=== PATIENT | female | born 1950 | race Caucasian/White ===

== ENCOUNTER 2018-03-20 00:45 | Inpatient (IN) | payer OTHER, MEDICARE ==
[2018-03-20] MEDS: SOD CHLORIDE 0.9% 500 ML IV (01:55)
[2018-03-20] MEDS: morphine 4 MG/ML VIAL IV (01:56)
[2018-03-20] MEDS: ONDANSETRON 4 MG INJ IV (01:56)
[2018-03-20 02:23] LABS: ADD MAN DIFF? NO
[2018-03-20 02:27] LABS: BASOPHILS % 0.2 % (0.0-2.0); EOSINOPHILS % 0.2 % (0.0-7.0); HEMATOCRIT 41.7 % (37.0-47.0); HEMOGLOBIN 14.3 g/dl (12.0-16.0); MEAN CORPUSCULAR HEMOGLOBIN 31.3 pg (29.0-33.0); MEAN CORPUSCULAR HGB CONC 34.3 g/dl (32.0-37.0); MEAN CORPUSCULAR VOLUME 91.2 fl (82.0-101.0); MONOCYTE # 0.8 10^3/ul (0.3-0.9); MONOCYTES % 5.7 % (0.0-11.0); NEUTROPHIL # 11.1 10^3/ul (1.6-7.5); NEUTROPHILS % 79.6 % (39.0-77.0); PLATELET COUNT 279 10^3/UL (140-415); RED BLOOD COUNT 4.57 10^6/ul (4.20-5.40); RED CELL DISTRIBUTION WIDTH 11.7 % (11.5-14.5)
[2018-03-20 02:57] LABS: ALANINE AMINOTRANSFERASE 375 IU/L (13-69); ALBUMIN 4.4 g/dl (3.3-4.9); ALBUMIN/GLOBULIN RATIO 1.04; ALKALINE PHOSPHATASE 155 IU/L (42-121); ANION GAP 16 (8-16); ASPARTATE AMINO TRANSFERASE 482 IU/L (15-46); BILIRUBIN,INDIRECT 0.4 mg/dl (0-1.1); BILIRUBIN,TOTAL 0.5 mg/dl (0.2-1.3); BLOOD UREA NITROGEN 17 mg/dl (7-20); CARBON DIOXIDE 30 mmol/L (21-31); CHLORIDE 102 mmol/L (97-110); CREATININE 0.58 mg/dl (0.44-1.00); GLUCOSE 289 mg/dl (70-220); LIPASE 93 U/L (23-300); POTASSIUM 4.3 mmol/L (3.5-5.1); SODIUM 144 mmol/L (135-144); TOTAL PROTEIN 8.6 g/dl (6.1-8.1)
[2018-03-20 04:29] LABS: URINE PH (Dip) POC 6.5 (5.0-8.5)
[2018-03-20 04:29] LABS: URINE BLOOD (Dip) POC 2+ (NEGATIVE); URINE KETONES (Dip) POC Negative (NEGATIVE); URINE LEUKOCYTE EST (Dip) POC Negative (NEGATIVE); URINE NITRITE (Dip) POC Negative (NEGATIVE); URINE TOTAL PROTEIN POC Trace (NEGATIVE)
[2018-03-20] MEDS: PIPER-TAZO 3.375 GM IV (PMX) 100 ML IVPB ×3 (04:34→19:06)
[2018-03-20] MEDS ORDERED: NACL 0.9% 3 ML SYG IV (05:30)
[2018-03-20] MEDS ORDERED: GLUCOSE GEL 15 GRAM TUBE BUCCAL (05:30)
[2018-03-20] MEDS ORDERED: GLUCOSE GEL 15 GRAM TUBE PO ×2 (05:30)
[2018-03-20] MEDS ORDERED: ALBUTEROL/IPRATROPIUM (NEB) 3 ML AMP HHN (05:30)
[2018-03-20] MEDS ORDERED: DEXTROSE 50% 50 ML SYRINGE IV ×2 (05:30)
[2018-03-20] MEDS ORDERED: GLUCAGON 1 MG INJ IM (05:30)
[2018-03-20] MEDS: morphine 2 MG INJ IV (06:10)
[2018-03-20] MEDS: DEXTROSE 5%-0.45% NACL 1,000 ML IV (06:10)
[2018-03-20] MEDS: INSULIN ASPART [NOVOLOG] 3 ML PEN SC ×4 (09:28→21:00)
[2018-03-20] MEDS: FAMOTIDINE 20 MG INJ IV ×2 (09:32→20:56)
[2018-03-20] MEDS ORDERED: IBUPROFEN 600 MG TAB PO (17:00)
[2018-03-20] MEDS ORDERED: ACETAMINOPHEN 325 MG TAB PO (17:00)
[2018-03-20] MEDS ORDERED: ONDANSETRON 4 MG INJ IV ×2 (17:00→17:30)
[2018-03-20] MEDS ORDERED: HYDROCODONE/APAP (10/325) TAB PO (17:00)
[2018-03-20] MEDS ORDERED: DIPHENHYDRAMINE 50 MG INJ IV (17:30)
[2018-03-20] MEDS ORDERED: FENTAnyl 50 MCG/ML VIAL IV ×2 (17:30)
[2018-03-20] MEDS ORDERED: METOCLOPRAMIDE 10 MG INJ IV (17:30)
[2018-03-20] MEDS ORDERED: HYDROmorphONE (0.2 MG/ML) 10ML SYG IV ×3 (17:30)
[2018-03-20] MEDS ORDERED: MEPERIDINE 25 MG INJ IV (17:30)
[2018-03-20] MEDS ORDERED: POTASSIUM CHLORIDE 10 MEQ in SOD CHLORIDE 0.45% 1,000 ML IV (17:30)
[2018-03-20 17:46] LABS: HEMOGLOBIN A1C 7.4 % (0-5.9)
[2018-03-20] MEDS: D5W-0.45 NACL + KCL 20 MEQ 1,000 ML IV (19:06)
[2018-03-20] MEDS: INSULIN GLARGINE [LANtus] 3 ML PEN SC (20:59)
[2018-03-21] MEDS: PIPER-TAZO 3.375 GM IV (PMX) 100 ML IVPB ×5 (00:06→23:59)
[2018-03-21] MEDS: ONDANSETRON 4 MG INJ IV ×2 (00:10→14:43)
[2018-03-21] MEDS ORDERED: ACCU-CHEK XX (02:00)
[2018-03-21] MEDS: INSULIN ASPART [NOVOLOG] 3 ML PEN SC ×6 (02:52→21:49)
[2018-03-21] MEDS: D5W-0.45 NACL + KCL 20 MEQ 1,000 ML IV ×3 (02:57→21:43)
[2018-03-21] MEDS: INDOMETHACIN 50 MG SUPP PR (03:06)
[2018-03-21] MEDS: morphine 2 MG INJ IV (05:50)
[2018-03-21 06:07] LABS: ADD MAN DIFF? NO
[2018-03-21 06:10] LABS: WHITE BLOOD COUNT 10.2 10^3/ul (4.8-10.8)
[2018-03-21 06:10] LABS: BASOPHILS % 0.3 % (0.0-2.0); EOSINOPHILS % 0.1 % (0.0-7.0); HEMATOCRIT 38.9 % (37.0-47.0); HEMOGLOBIN 13.5 g/dl (12.0-16.0); LYMPHOCYTES # 1.8 10^3/ul (0.8-2.9); LYMPHOCYTES % 17.9 % (15.0-51.0); MEAN CORPUSCULAR HEMOGLOBIN 31.4 pg (29.0-33.0); MEAN CORPUSCULAR HGB CONC 34.7 g/dl (32.0-37.0); MEAN CORPUSCULAR VOLUME 90.5 fl (82.0-101.0); MEAN PLATELET VOLUME 10.7 fl (7.4-10.4); MONOCYTE # 0.8 10^3/ul (0.3-0.9); MONOCYTES % 7.9 % (0.0-11.0); NEUTROPHIL # 7.5 10^3/ul (1.6-7.5); NEUTROPHILS % 73.4 % (39.0-77.0); PLATELET COUNT 250 10^3/UL (140-415); RED CELL DISTRIBUTION WIDTH 12.1 % (11.5-14.5)
[2018-03-21 06:29] LABS: INR 0.93; PROTIME 12.6 Sec (11.9-14.9)
[2018-03-21 06:30] LABS: PARTIAL THROMBOPLASTIN TIME 20.5 Sec (25.0-35.0)
[2018-03-21 06:40] LABS: ALBUMIN 4.1 g/dl (3.3-4.9); ALBUMIN/GLOBULIN RATIO 0.97; ALKALINE PHOSPHATASE 249 IU/L (42-121); ANION GAP 11 (8-16); BLOOD UREA NITROGEN 8 mg/dl (7-20); CALCIUM 9.4 mg/dl (8.4-10.2); CARBON DIOXIDE 34 mmol/L (21-31); CHLORIDE 101 mmol/L (97-110); CREATININE 0.55 mg/dl (0.44-1.00); GLUCOSE 213 mg/dl (70-220); MAGNESIUM 2.1 mg/dl (1.7-2.5); PHOSPHORUS 2.5 mg/dl (2.5-4.9); POTASSIUM 4.1 mmol/L (3.5-5.1); SODIUM 142 mmol/L (135-144); TOTAL PROTEIN 8.3 g/dl (6.1-8.1)
[2018-03-21 06:52] LABS: ASPARTATE AMINO TRANSFERASE 1047 IU/L (15-46)
[2018-03-21] MEDS ORDERED: ONDANSETRON 4 MG INJ (07:00)
[2018-03-21] MEDS ORDERED: LIDOCAINE 2% (SDV) 5 ML INJ (07:00)
[2018-03-21] MEDS ORDERED: METOCLOPRAMIDE 10 MG INJ (07:00)
[2018-03-21 07:56] LABS: ALANINE AMINOTRANSFERASE 1913 IU/L (13-69)
[2018-03-21] MEDS: FAMOTIDINE 20 MG INJ IV ×2 (08:50→21:41)
[2018-03-21] MEDS: HYDROmorphONE 0.5 MG/0.5 ML SYG IV ×2 (09:18→12:07)
[2018-03-21] MEDS: hydrALAzine 20 MG INJ IV ×2 (11:11→20:40)
[2018-03-21] MEDS ORDERED: IOHEXOL 300MG/ML 30 ML BTL (18:09)
[2018-03-21] MEDS ORDERED: PROPOFOL 20 ML (18:18)
[2018-03-21] MEDS ORDERED: SUCCINYLCHOLINE CHLORIDE 100 MG/5 ML SYG IV (18:18)
[2018-03-21] MEDS ORDERED: FENTAnyl 50 MCG/ML VIAL (18:19)
[2018-03-21] MEDS ORDERED: MIDAZOLAM 1 MG/ML 2 ML INJ (18:19)
[2018-03-21] MEDS ORDERED: hydrALAzine 20 MG INJ IV (20:00)
[2018-03-21] MEDS ORDERED: FENTAnyl 50 MCG/ML VIAL IV (20:00)
[2018-03-21] MEDS ORDERED: DIPHENHYDRAMINE 50 MG INJ IV (20:00)
[2018-03-21] MEDS ORDERED: LABETALOL HCL 20MG INJ IV (20:00)
[2018-03-21] MEDS ORDERED: MEPERIDINE 25 MG INJ IV (20:00)
[2018-03-21] MEDS ORDERED: METOCLOPRAMIDE 10 MG INJ IV (20:00)
[2018-03-21] MEDS ORDERED: KETOROLAC 30 MG INJ IV (20:00)
[2018-03-21] MEDS ORDERED: HYDROmorphONE (0.2 MG/ML) 10ML SYG IV ×2 (20:00)
[2018-03-21] MEDS ORDERED: ONDANSETRON 4 MG INJ IV (20:00)
[2018-03-21] MEDS: FENTAnyl 50 MCG/ML VIAL IV (20:51)
[2018-03-21] MEDS: INSULIN GLARGINE [LANtus] 3 ML PEN SC (21:48)
[2018-03-22] MEDS: ACCUCHECK AT 2AM (Patients on SS coverage) XX (02:59)
[2018-03-22] MEDS: PIPER-TAZO 3.375 GM IV (PMX) 100 ML IVPB ×4 (05:40→23:37)
[2018-03-22] MEDS: INDOMETHACIN 50 MG SUPP PR (05:43)
[2018-03-22] MEDS: ENOXAPARIN 40 MG/0.4 ML SYG SC (07:00)
[2018-03-22] MEDS ORDERED: INSULIN ASPART [NOVOLOG] 3 ML PEN SC (07:30)
[2018-03-22] MEDS: D5W-0.45 NACL + KCL 20 MEQ 1,000 ML IV ×3 (08:17→20:33)
[2018-03-22] MEDS: FAMOTIDINE 20 MG INJ IV ×2 (08:17→20:32)
[2018-03-22] MEDS: Insulin NOVOLOG SS MILD Algorithm (SS with meals and bedtime) SC ×4 (08:17→20:21)
[2018-03-22] MEDS: hydrALAzine 20 MG INJ IV ×2 (08:18→16:11)
[2018-03-22] MEDS: INSULIN GLARGINE [LANtus] 3 ML PEN SC (20:20)
[2018-03-23] MEDS: ACCUCHECK AT 2AM (Patients on SS coverage) XX (02:00)
[2018-03-23] MEDS: ENOXAPARIN 40 MG/0.4 ML SYG SC (06:05)
[2018-03-23] MEDS: PIPER-TAZO 3.375 GM IV (PMX) 100 ML IVPB ×4 (06:08→23:55)
[2018-03-23] MEDS: D5W-0.45 NACL + KCL 20 MEQ 1,000 ML IV (06:09)
[2018-03-23 06:13] LABS: ADD MAN DIFF? NO
[2018-03-23 06:19] LABS: BASOPHILS % 0.6 % (0.0-2.0); EOSINOPHILS # 0.2 10^3/ul (0.0-0.5); EOSINOPHILS % 2.6 % (0.0-7.0); HEMATOCRIT 35.2 % (37.0-47.0); HEMOGLOBIN 12.2 g/dl (12.0-16.0); LYMPHOCYTES # 2.2 10^3/ul (0.8-2.9); LYMPHOCYTES % 31.2 % (15.0-51.0); MEAN CORPUSCULAR HEMOGLOBIN 31.8 pg (29.0-33.0); MEAN CORPUSCULAR HGB CONC 34.7 g/dl (32.0-37.0); MEAN CORPUSCULAR VOLUME 91.7 fl (82.0-101.0); MEAN PLATELET VOLUME 11.1 fl (7.4-10.4); MONOCYTE # 0.6 10^3/ul (0.3-0.9); MONOCYTES % 8.5 % (0.0-11.0); NEUTROPHILS % 56.8 % (39.0-77.0); PLATELET COUNT 247 10^3/UL (140-415); RED BLOOD COUNT 3.84 10^6/ul (4.20-5.40); RED CELL DISTRIBUTION WIDTH 12.5 % (11.5-14.5)
[2018-03-23 06:43] LABS: ALANINE AMINOTRANSFERASE 872 IU/L (13-69); ALBUMIN 3.3 g/dl (3.3-4.9); ALBUMIN/GLOBULIN RATIO 0.89; ALKALINE PHOSPHATASE 260 IU/L (42-121); ANION GAP 12 (8-16); ASPARTATE AMINO TRANSFERASE 280 IU/L (15-46); BILIRUBIN,TOTAL 1.6 mg/dl (0.2-1.3); BLOOD UREA NITROGEN 13 mg/dl (7-20); CALCIUM 8.9 mg/dl (8.4-10.2); CARBON DIOXIDE 28 mmol/L (21-31); CHLORIDE 108 mmol/L (97-110); CREATININE 0.56 mg/dl (0.44-1.00); GLUCOSE 159 mg/dl (70-220); POTASSIUM 3.5 mmol/L (3.5-5.1); SODIUM 144 mmol/L (135-144)
[2018-03-23] MEDS ORDERED: BUPIVACAINE 0.25%/EPI (MDV) 50 ML VIAL INJ (07:00)
[2018-03-23] MEDS ORDERED: BUPIVACAINE 0.5%/EPI (SDV) 30 ML INJ (07:10)
[2018-03-23] MEDS ORDERED: MIDAZOLAM 1 MG/ML 2 ML INJ (07:43)
[2018-03-23] MEDS ORDERED: LIDOCAINE 1% (MDV) 20 ML INJ (07:43)
[2018-03-23] MEDS ORDERED: ROCURONIUM 50 MG INJ (07:43)
[2018-03-23] MEDS ORDERED: PROPOFOL 20 ML (07:43)
[2018-03-23] MEDS ORDERED: LIDOCAINE 1% (MPF) 30 ML INJ (07:44)
[2018-03-23] MEDS ORDERED: LABETALOL HCL 20MG INJ (07:51)
[2018-03-23] MEDS ORDERED: ROPIVACAINE 0.2% 20 ML VIAL (08:00)
[2018-03-23] MEDS ORDERED: ONDANSETRON 4 MG INJ IV ×2 (08:00→09:30)
[2018-03-23] MEDS: Insulin NOVOLOG SS MILD Algorithm (SS with meals and bedtime) SC ×4 (08:00→21:17)
[2018-03-23] MEDS ORDERED: METOCLOPRAMIDE 10 MG INJ IV (08:00)
[2018-03-23] MEDS ORDERED: ONDANSETRON 4 MG INJ (08:06)
[2018-03-23] MEDS ORDERED: FAMOTIDINE 20 MG INJ (08:06)
[2018-03-23] MEDS ORDERED: DEXAMETHASONE 4 MG/ML 1 ML INJ (08:06)
[2018-03-23] MEDS: BUPIVACAINE 0.25%/EPI (SDV) 30 ML INJ (08:14)
[2018-03-23] MEDS: LIDOCAINE 1% (MPF) 30 ML INJ (08:14)
[2018-03-23] MEDS ORDERED: SUGAMMADEX SODIUM 200 MG/2 ML VIAL IV (08:57)
[2018-03-23] MEDS: FAMOTIDINE 20 MG INJ IV ×2 (09:00→21:19)
[2018-03-23] MEDS: D5-NS + KCL 20 MEQ 1,000 ML IV ×2 (09:06→17:04)
[2018-03-23] MEDS ORDERED: KETOROLAC 15 MG INJ IV (09:30)
[2018-03-23] MEDS ORDERED: HYDROCODONE/APAP (10/325) TAB PO (09:30)
[2018-03-23] MEDS ORDERED: morphine 2 MG INJ IV (09:30)
[2018-03-23] MEDS ORDERED: ACETAMINOPHEN 325 MG TAB PO (09:30)
[2018-03-23] MEDS ORDERED: IBUPROFEN 600 MG TAB PO (09:30)
[2018-03-23] MEDS ORDERED: HYDROmorphONE 0.5 MG/0.5 ML SYG IV (09:30)
[2018-03-23] MEDS: HYDROmorphONE (0.2 MG/ML) 10ML SYG IV ×3 (09:33→09:59)
[2018-03-23] MEDS ORDERED: PIPER-TAZO 3.375 GM IV (PMX) 100 ML IVPB (12:00)
[2018-03-23] MEDS: INSULIN GLARGINE [LANtus] 3 ML PEN SC (21:17)
[2018-03-24] MEDS: ACCUCHECK AT 2AM (Patients on SS coverage) XX (02:00)
[2018-03-24] MEDS: PIPER-TAZO 3.375 GM IV (PMX) 100 ML IVPB ×2 (06:08→11:45)
[2018-03-24] MEDS: ENOXAPARIN 40 MG/0.4 ML SYG SC (06:10)
[2018-03-24] MEDS: Insulin NOVOLOG SS MILD Algorithm (SS with meals and bedtime) SC ×2 (08:00→12:24)
[2018-03-24] MEDS: FAMOTIDINE 20 MG INJ IV (09:27)
[2018-03-24 10:52] LABS: ADD MAN DIFF? NO
[2018-03-24 10:54] LABS: BASOPHILS % 0.1 % (0.0-2.0); EOSINOPHILS % 0.4 % (0.0-7.0); HEMATOCRIT 33.9 % (37.0-47.0); HEMOGLOBIN 11.6 g/dl (12.0-16.0); LYMPHOCYTES # 1.6 10^3/ul (0.8-2.9); LYMPHOCYTES % 15.9 % (15.0-51.0); MEAN CORPUSCULAR HEMOGLOBIN 31.5 pg (29.0-33.0); MEAN CORPUSCULAR HGB CONC 34.2 g/dl (32.0-37.0); MEAN CORPUSCULAR VOLUME 92.1 fl (82.0-101.0); MEAN PLATELET VOLUME 10.3 fl (7.4-10.4); MONOCYTE # 0.8 10^3/ul (0.3-0.9); MONOCYTES % 7.9 % (0.0-11.0); NEUTROPHIL # 7.5 10^3/ul (1.6-7.5); NEUTROPHILS % 75.4 % (39.0-77.0); PLATELET COUNT 235 10^3/UL (140-415); RED BLOOD COUNT 3.68 10^6/ul (4.20-5.40); RED CELL DISTRIBUTION WIDTH 12.4 % (11.5-14.5)
[2018-03-24 11:19] LABS: ALANINE AMINOTRANSFERASE 765 IU/L (13-69); ALBUMIN 3.1 g/dl (3.3-4.9); ALKALINE PHOSPHATASE 225 IU/L (42-121); ASPARTATE AMINO TRANSFERASE 257 IU/L (15-46); BILIRUBIN,INDIRECT 0.9 mg/dl (0-1.1); BILIRUBIN,TOTAL 0.9 mg/dl (0.2-1.3); TOTAL PROTEIN 6.2 g/dl (6.1-8.1)
[2018-03-24 11:21] LABS: ANION GAP 10 (8-16); BLOOD UREA NITROGEN 13 mg/dl (7-20); CALCIUM 8.9 mg/dl (8.4-10.2); CARBON DIOXIDE 29 mmol/L (21-31); CHLORIDE 103 mmol/L (97-110); CREATININE 0.57 mg/dl (0.44-1.00); GLUCOSE 202 mg/dl (70-220); POTASSIUM 3.2 mmol/L (3.5-5.1); SODIUM 139 mmol/L (135-144)
[2018-03-24] MEDS: D5-NS + KCL 20 MEQ 1,000 ML IV (11:46)
== END 2018-03-24 16:41 | disposition home or self-care (01) | DRG 418 ==
LOC: E/R 00:45 → PP2 04:28
PROC: 0F798DZ Dilation of Common Bile Duct with Intraluminal Device, Via Natural or Artificial Opening Endoscopic (ICD-10-PCS; 2018-03-21 17:30)
PROC: 0FC98ZZ Extirpation of Matter from Common Bile Duct, Via Natural or Artificial Opening Endoscopic (ICD-10-PCS; 2018-03-21 17:30)
PROC: 0FT44ZZ Resection of Gallbladder, Percutaneous Endoscopic Approach (ICD-10-PCS; principal; 2018-03-21 18:46)
PROC: BF10YZZ Fluoroscopy of Bile Ducts using Other Contrast (ICD-10-PCS; 2018-03-21 18:46)
DX: K80.66 Calculus of gallbladder and bile duct with acute and chronic cholecystitis without obstruction (principal); K56.7 Ileus, unspecified; E11.65 Type 2 diabetes mellitus with hyperglycemia; R74.0 Nonspecific elevation of levels of transaminase and lactic acid dehydrogenase [LDH]; Z79.4 Long term (current) use of insulin; Z90.710 Acquired absence of both cervix and uterus
CPT/HCPCS: 36415; 74181; 74330; 76705; 80048; 80053; 80076; 81003; 82962; 83036; 83690; 83735; 84100; 85025; 85610; 85730; 88304; 93005; 96365; 96375; 99285-25